=== PATIENT | female | born 1945 | race Caucasian/White ===

== ENCOUNTER 2018-04-10 11:01 | Day surgery (SDC) | payer MEDICARE, MEDICAID ==
[2018-03-16 11:46] VITALS: BMI 28.3
[2018-04-10 11:53] LABS: BASO # 0.03 K/mm3 (0.0-2.0); BASO % 0.6 % (0.0-3.0); EOS # 0.3 (0.0-0.7); EOS % 5.1 % (1.5-5.0); GRAN # 2.08 (1.4-6.5); GRAN % 40.4 % (50.0-68.0); HEMOGLOBIN 12.1 g/dL (12.0-16.0); LYMPH # 2.2 (1.2-3.4); LYMPH % 42.2 % (22.0-35.0); MEAN CELL VOLUME 85.1 fl (80.0-105.0); MEAN CORPUSCULAR HEMOGLOBIN 27.4 pg (25.0-35.0); MEAN CORPUSCULAR HGB CONC 32.2 g/dl (31.0-37.0); MEAN PLATELET VOLUME 9.4 fl (7.0-11.0); MONO # 0.6 (0.1-0.6); MONO % 11.7 % (1.0-6.0); RBC 4.42 10^6/uL (3.5-6.1); RED CELL DISTRIBUTION WIDTH 13.4 % (11.5-14.5); WHITE BLOOD COUNT 5.1 10^3/ul (4.5-11.0)
[2018-04-10 12:02] LABS: BLOOD UREA NITROGEN 17 mg/dL (7-21); CALCIUM 9.1 mg/dL (8.4-10.5); GFR NON-AFRICAN AMERICAN > 60
[2018-04-10 12:06] LABS: INR 0.99; PROTHROMBIN TIME 11.4 SECONDS (9.4-12.5)
[2018-04-10 12:07] LABS: PARTIAL THROMBOPLASTIN TIME 28.7 Seconds (25.1-36.5)
--- NOTE | 2018-04-10 14:32 | CARD ---
APPROVED REPORT Date of service: 04/10/2018 EKG Measurement Heart [id number] <Conclusion> Sinus bradycardia Otherwise normal ECG
[2018-04-10] MEDS ORDERED: Lidocaine 1% 5ml Abboject ONE (14:39)
[2018-04-10] MEDS ORDERED: Liquid Adhesive TOP ONE (14:39)
[2018-04-10] MEDS ORDERED: Bupivacaine 0.5% 50 ML IJ ONE (14:39)
[2018-04-10] MEDS ORDERED: Propofol 10 mg/ml Inj (20 ML) ONE (14:57)
[2018-04-10] MEDS ORDERED: Midazolam 2 MG/2 ML VIAL ONE (14:58)
[2018-04-10] MEDS ORDERED: Lidocaine 1% w Epi 1:100,000 Inj ONE (15:04)
--- NOTE | 2018-04-10 15:48 | PCM.SURG1 ---
Surgeon's Initial Post Op Note - Surgeon's Notes Surgeon: Dr. Otero Fork Lift Mechanic: Dr. Partida PGY3 Type of Anesthesia: IV Sedation Pre-Operative Diagnosis: Invasive Ductal CA Operative Findings: See operative dictation Post-Operative Diagnosis: Invasive ductal CA Operation Performed: Portacath Insertion Right Internal Jugular Specimen/Specimens Removed: None Estimated Blood Loss: EBL {In ML}: 0 Blood Products Given: N/A Drains Used: No Drains Post-Op Condition: Good Date of Surgery/Procedure: 04/10/18 Time of Surgery/Procedure: 15:48
[2018-04-10] MEDS ORDERED: Sodium Chloride 0.9% 1,000 ML IV SCH (16:00)
[2018-04-10 16:02] VITALS: RESP 18; O2SAT 100
--- NOTE | 2018-04-10 16:27 | RAD ---
HISTORY: Portacath Need Upright COMPARISON: Chest x-ray performed 03/20/18 TECHNIQUE: Chest, one view. FINDINGS: Right IJ approach central venous catheter extends to the SVC. LUNGS: No focal consolidation. Please note that chest x-ray has limited sensitivity for the detection of pulmonary masses. PLEURA: No significant pleural effusion identified. No definite pneumothorax . CARDIOVASCULAR: Heart size appears within normal limits. OSSEOUS STRUCTURES: Mild degenerative changes. VISUALIZED UPPER ABDOMEN: Unremarkable. OTHER FINDINGS: None. IMPRESSION: Right IJ approach central venous catheter extends the SVC.
[2018-04-10 16:43] VITALS: TEMP 97.7
--- NOTE | 2018-04-10 17:31 | RAD ---
Date of service: 04/10/2018 PROCEDURE: Fluoroscopy up to 1 hr. HISTORY: VENOUS ACCESS PORT INSERTION COMPARISON: None TECHNIQUE: Standard protocol for this study/examination. FINDINGS: Total fluoroscopic time (continuous mode) utilized during the procedure 5.3. (seconds). Total exam DLP: 0.72 (mGy). IMPRESSION: Less than 1 hr fluoroscopic assistance provided during performance of the procedure.
[2018-04-10 17:32] VITALS: BP 132/78; PULSE 60
[2018-04-11] MEDS ORDERED: Multivitamin Vitamin B Complex (Nephro-Vite) Tab PO SCH (10:00)
[2018-04-14] MEDS ORDERED: Ergocalciferol 50,000 Intl Units Cap PO SCH (10:00)
--- NOTE | 2018-04-15 21:52 | OP ---
PROCEDURE DATE: 04/10/2018 PREOPERATIVE DIAGNOSIS: Left breast cancer. POSTOPERATIVE DIAGNOSIS: Left breast cancer. SURGERY: Insertion of Port-A-Cath in the right internal jugular vein ultrasonographic and fluoroscopic guidance. SURGEON: Dereck Otero MD ANESTHESIA: MAC. DESCRIPTION OF PROCEDURE: The patient was brought into the operating room, placed on the operating table in the supine position. After the smooth induction of IV sedation, Venodyne boots were placed on both legs and prophylactic antibiotics were given. Both arms are tucked parallel to the trunk. Patient position was changed to Trendelenburg and the entire anterior and lateral aspects of the neck as well as anterior chest wall were prepped and draped in the usual sterile fashion. The right cervical area was scanned with a SonoSite probe and the internal jugular vein was identified, the overlying skin was infiltrated with local anesthetic and incised with an 11 blade. A 16-gauge needle was advanced under Real time ultrasound guidance into the right internal jugular vein and using Seldinger technique, a guidewire was inserted under fluoroscopic guidance followed by the Port-A-Cath dilator and the sheath. Through the sheath, 8 [place] lumen of the Port-A-Cath was inserted and the tip was directed under fluoroscopic guidance to the junction between the superior vena cava and the right atrium. A pocket was created at the mid third of the right infraclavicular area after infiltrating the skin with local anesthetic and incising with 15 blade. A pocket was created within the subcutaneous tissue and the pectoralis major muscle in the infraclavicular area from the puncture site in the right lateral cervical area to the area of the pocket in the right anterior chest wall. The tubing was connected to the Port-A-Cath reservoir and secured to the chest through the pectoralis major fascia using a 2-0 Vicryl stitch. The blood was aspirated with a Bey through the drum of the Port-A-Cath reservoir and then all the system was irrigated, was flushed rather with a normal saline. The skin was closed in two layers using interrupted 3-0 Vicryl stitch for the dermis and Dermabond skin. Dermabond was also used to close the small right cervical wound. At the end of the surgery, the count of the instruments, gauze, and needles was correct x2. The patient tolerated the surgery well and was transferred in stable condition to the Recovery Room. Dereck Otero MD
== END 2018-04-10 17:15 | disposition home or self-care (01) ==
LOC: SDS 11:01
PROVIDERS: ATTEND Specialist
DX: C50.912 Malignant neoplasm of unspecified site of left female breast (principal)

== ENCOUNTER 2018-07-21 15:03 | Outpatient (CLI) | payer MEDICARE, MEDICAID | END 2018-07-21 15:04 | disposition home or self-care (01) | LOC: OPLAB 15:03 | DX: D64.9 Anemia, unspecified (principal); E78.5 Hyperlipidemia, unspecified; E83.40 Disorders of magnesium metabolism, unspecified; M81.0 Age-related osteoporosis without current pathological fracture ==

== ENCOUNTER 2018-07-23 12:25 | Outpatient (CLI) | payer MEDICARE, MEDICAID | END 2018-07-23 12:26 | disposition home or self-care (01) | LOC: LAB 12:25 ==

== ENCOUNTER 2018-07-27 11:29 | Outpatient (CLI) | payer MEDICARE, MEDICAID | END 2018-07-27 11:30 | disposition home or self-care (01) | LOC: OPLAB 11:29 | DX: D64.9 Anemia, unspecified (principal); E78.5 Hyperlipidemia, unspecified; E83.40 Disorders of magnesium metabolism, unspecified; M81.0 Age-related osteoporosis without current pathological fracture ==

== ENCOUNTER 2018-07-30 11:36 | Outpatient (CLI) | payer MEDICARE, MEDICAID | END 2018-07-30 11:37 | disposition home or self-care (01) | LOC: OPLAB 11:36 ==

== ENCOUNTER 2018-08-04 16:20 | Outpatient (CLI) | payer MEDICARE, MEDICAID | END 2018-08-04 16:21 | disposition home or self-care (01) | LOC: OPLAB 16:20 ==

== ENCOUNTER 2018-10-15 10:54 | Outpatient (CLI) | payer MEDICARE, MEDICAID | END 2018-10-15 10:55 | disposition home or self-care (01) | LOC: RAD 10:54 ==

== ENCOUNTER 2018-12-01 09:44 | Outpatient (CLI) | payer MEDICARE, MEDICAID | END 2018-12-01 09:45 | disposition home or self-care (01) | LOC: RAD 09:44 ==